=== PATIENT | female | born 1975 | race Caucasian/White ===

== ENCOUNTER 2017-05-05 16:27 | Outpatient (CLI) | payer MEDICAID ==
[~2017-05-05] VITALS: Ht 157.5 cm; Wt 69.5 kg
[2017-05-05 17:21] VITALS: BP 118/78
[2017-05-05 17:29] LABS: MICROSCOPIC INDICATED
[2017-05-05 18:32] LABS: AMPHETAMINE SCREEN, URINE Positive (Negative); BARBITURATE SCREEN, URINE Negative (Negative); BENZODIAZEPINE SCREEN, URINE Negative (Negative); CANNABINOID SCREEN, URINE Negative (Negative); COCAINE SCREEN, URINE Negative (Negative); METHADONE SCREEN, URINE Negative (Negative); OPIATE SCREEN, URINE Negative (Negative)
== END 2017-05-05 18:42 | disposition home or self-care (01) ==
LOC: LDOP 16:27
PROVIDERS: ATTEND Student in an Organized Health Care Education/Training Program
DX: O26.892 Other specified pregnancy related conditions, second trimester (principal); R42 Dizziness and giddiness; R07.81 Pleurodynia; Z3A.27 27 weeks gestation of pregnancy
CPT/HCPCS: 59025; 80307; 81001; 87086; 99201; G0463; G0479

== ENCOUNTER 2017-06-14 02:47 | Inpatient (IN) | payer MEDICAID ==
[~2017-06-14] VITALS: Ht 157.5 cm; Wt 70.4 kg
[2017-06-14] MEDS: LACTATED RINGERS 1,000 ML IV SCH ×2 (03:40→04:23)
[2017-06-14] MEDS ORDERED: MISOPROSTOL 200 MCG TABLET ONE (03:59)
[2017-06-14] MEDS ORDERED: BETAMETHASONE 6 MG/ML, 5ML IM ONE (03:59)
[2017-06-14] MEDS ORDERED: LIDOCAINE 1%, 20ML ONE (03:59)
[2017-06-14] MEDS ORDERED: NEWBORN KIT ONE (03:59)
[2017-06-14] MEDS ORDERED: OXYTOCIN 30U/ 0.9% NaCL 500ML 0 ML ONE (03:59)
[2017-06-14] MEDS ORDERED: CEFTRIAXONE 250 MG IM ONE (04:00)
[2017-06-14] MEDS ORDERED: AZITHROMYCIN 500 MG TABLET PO ONE (04:00)
[2017-06-14] MEDS ORDERED: OXYTOCIN 30U/ 0.9% NaCL 500ML 500 ML IV ONE (04:10)
[2017-06-14] MEDS ORDERED: ONDANSETRON 2MG/ML, 2ML IVPush PRN (04:30)
[2017-06-14] MEDS ORDERED: SODIUM CITRATE/CITRIC ACID 30 ML UDC PO PRN (04:30)
[2017-06-14] MEDS ORDERED: CALCIUM CARBONATE 500 MG TAB.CHEW PO PRN ×2 (04:30→05:00)
[2017-06-14] MEDS ORDERED: FENTANYL PF 100 MCG/2ML IV PRN (04:30)
[2017-06-14] MEDS ORDERED: METOCLOPRAMIDE 5 MG/ML, 2ML IVPush PRN (04:30)
[2017-06-14] MEDS ORDERED: FENTANYL PF 100 MCG/2ML IVPush PRN (04:30)
[2017-06-14] MEDS ORDERED: PENICILLIN GK 5,000,000 UNITS in DEXTROSE 5% 100 ML IVPB ONE (04:30)
[2017-06-14 04:37] LABS: MEAN CORPUSCULAR HEMOGLOBIN 23.7 pg (27.0-34.8); MEAN CORPUSCULAR HGB CONC 31.4 g/dL (32.4-35.8); MEAN CORPUSCULAR VOLUME 75.4 fL (80-100); MEAN PLATELET VOLUME 10.9 fL (7.4-10.4); PLATELET COUNT 238 x10^3/uL (130-400); RED BLOOD COUNT 3.94 x10^6/uL (3.82-5.3); RED CELL DISTRIBUTION WIDTH 19.6 % (9.6-15.2)
[2017-06-14] MEDS: OXYTOCIN 30U/ 0.9% NaCL 500ML 500 ML IV SCH ×2 (04:41→14:41)
[2017-06-14] MEDS ORDERED: IBUPROFEN 600 MG TABLET ONE (04:54)
[2017-06-14] MEDS ORDERED: OXYcodone/APAP 5/325MG TABLET ONE (04:55)
[2017-06-14] MEDS ORDERED: OXYTOCIN 30U/ 0.9% NaCL 500ML 500 ML IV SCH (04:58)
[2017-06-14] MEDS ORDERED: MAGNESIUM HYDROXIDE 8%, 30ML UDC PO PRN (05:00)
[2017-06-14] MEDS ORDERED: ONDANSETRON 2MG/ML, 2ML IV PRN (05:00)
[2017-06-14] MEDS ORDERED: OXYcodone/APAP 5/325MG TABLET PO PRN ×3 (05:00)
[2017-06-14] MEDS ORDERED: OXYcodone IR 5MG TABLET PO PRN (05:00)
[2017-06-14] MEDS ORDERED: HYDROcodone/APAP 5/325 TABLET PO PRN ×2 (05:00)
[2017-06-14] MEDS ORDERED: MEASLES,MUMPS&RUBELLA VACC/PF 0.5 ML SQ PRN (05:00)
[2017-06-14] MEDS ORDERED: IBUPROFEN 800 MG TABLET PO PRN (05:00)
[2017-06-14] MEDS ORDERED: MISOPROSTOL 200 MCG TABLET PR PRN (05:00)
[2017-06-14] MEDS ORDERED: DIPH,PERTUSS(ACELL),TET VAC/PF NC IM-VACC PRN (05:00)
[2017-06-14] MEDS ORDERED: IBUPROFEN 600 MG TABLET PO PRN (05:00)
[2017-06-14] MEDS ORDERED: RHOGAM FROM BLOOD BANK 1 NOTE EA IM/IV ONE (05:00)
[2017-06-14] MEDS: IBUPROFEN 600 MG TABLET PO PRN ×2 (05:01→12:24)
[2017-06-14] MEDS ORDERED: OXYTOCIN 30U/ 0.9% NaCL 500ML 500 ML ONE (05:14)
[2017-06-14 07:30] VITALS: BP 124/83
[2017-06-14] MEDS ORDERED: PENICILLIN GK 2,500,000 UNITS in DEXTROSE 5% 100 ML IV SCH (08:30)
[2017-06-14] MEDS ORDERED: PRENATAL VIT/IRON/FA 1 EACH TABLET PO SCH (09:00)
[2017-06-14] MEDS: DOCUSATE 100 MG CAPSULE PO PRN (12:24)
[2017-06-14] MEDS: PRENATAL VIT/IRON/FA 1 EACH TABLET PO SCH (12:24)
[2017-06-14 13:22] LABS: MEAN CORPUSCULAR HEMOGLOBIN 24.2 pg (27.0-34.8); MEAN CORPUSCULAR HGB CONC 31.8 g/dL (32.4-35.8); MEAN CORPUSCULAR VOLUME 76.3 fL (80-100); MEAN PLATELET VOLUME 10.7 fL (7.4-10.4); PLATELET COUNT 238 x10^3/uL (130-400); RED CELL DISTRIBUTION WIDTH 19.7 % (9.6-15.2)
[2017-06-14 13:39] LABS: MD YES
[2017-06-14 13:43] LABS: BAND#(MANUAL) 0.56 x10^3/uL; BANDS%(MANUAL) 2 % (0-7); LYMPH#(MANUAL) 0.85 x10^3/uL (1-3.4); LYMPHS% (MANUAL) 3 % (22-44); SEG#(MANUAL) 26.79 x10^3/uL (1.8-6.8); SEGS% (MANUAL) 95 % (42-75)
[2017-06-14 13:44] LABS: <PLATELET ESTIMATE> ADEQUATE; ANISOCYTOSIS 1+; HYPOCHROMIA 1+; LARGE PLATELETS 1+; MICROCYTOSIS 1+; POLYCHROMASIA 1+
[2017-06-14 13:45] LABS: TOXIC GRAN 1+
[2017-06-14 15:54] LABS: AMPHETAMINE SCREEN, URINE Positive (Negative); BARBITURATE SCREEN, URINE Negative (Negative); BENZODIAZEPINE SCREEN, URINE Negative (Negative); CANNABINOID SCREEN, URINE Negative (Negative); COCAINE SCREEN, URINE Negative (Negative); METHADONE SCREEN, URINE Negative (Negative); OPIATE SCREEN, URINE Negative (Negative)
[2017-06-14 16:30] VITALS: BP 117/73
[2017-06-14 21:00] VITALS: BP 109/71
[2017-06-15] VITALS: BP 111/72
[2017-06-15] MEDS: OXYTOCIN 30U/ 0.9% NaCL 500ML 500 ML IV SCH (00:41)
[2017-06-15 07:00] VITALS: BP 127/87
[2017-06-15] MEDS: DOCUSATE 100 MG CAPSULE PO PRN (08:27)
[2017-06-15] MEDS: PRENATAL VIT/IRON/FA 1 EACH TABLET PO SCH (08:27)
[2017-06-15] MEDS ORDERED: IBUP-1223 PO (08:55)
[2017-06-15] MEDS ORDERED: FERR325T23 PO (08:57)
== END 2017-06-15 12:31 | disposition home or self-care (01) | DRG 774 ==
LOC: LDOP 02:47 → OBSVTOIN 03:48 → LDIP 03:48 → 2NW 07:29
PROVIDERS: ADMIT Student in an Organized Health Care Education/Training Program; ATTEND Student in an Organized Health Care Education/Training Program
PROC: 10E0XZZ Delivery of Products of Conception, External Approach (ICD-10-PCS; principal; 2017-06-14)
DX: O60.14X0 Preterm labor third trimester with preterm delivery third trimester, not applicable or unspecified (principal); O98.22 Gonorrhea complicating childbirth; O99.324 Drug use complicating childbirth; O14.94 Unspecified pre-eclampsia, complicating childbirth; F15.90 Other stimulant use, unspecified, uncomplicated; Z37.0 Single live birth; Z3A.33 33 weeks gestation of pregnancy; Z88.2 Allergy status to sulfonamides
CPT/HCPCS: 36415; 80307; 82803; 85025; 85027; 86592; 86703; 86762; 86850; 86900; 87340; 87899; 88305; J0696; J2540; G0435; J2590; J7120

== ENCOUNTER 2017-09-03 13:04 | Emergency (ER) | payer MEDICAID ==
[~2017-09-03] VITALS: Ht 160 cm; Wt 61.9 kg
[~2017-09-03 13:04] MED LIST: FERR325T23 PO; IBUP-1223 PO
[2017-09-03] MEDS ORDERED: SODIUM CHLORIDE FLUSH 10ML SYR IVF ONE (15:30)
[2017-09-03 15:35] LABS: BASOPHILS # (AUTO) 0.09 x10^3/uL (0-0.1); BASOPHILS % (AUTO) 1 % (0-1); EOSINOPHILS # (AUTO) 0.68 x10^3/uL (0-0.4); EOSINOPHILS % (AUTO) 9 % (1-7); LYMPHOCYTES % (AUTO) 21 % (22-44); MD NO; MEAN CORPUSCULAR HEMOGLOBIN 24.2 pg (27.0-34.8); MEAN CORPUSCULAR HGB CONC 31.7 g/dL (32.4-35.8); MEAN CORPUSCULAR VOLUME 76.3 fL (80-100); MEAN PLATELET VOLUME 10.1 fL (7.4-10.4); MONOCYTES # (AUTO) 0.86 x10^3/uL (0.2-0.8); MONOCYTES % (AUTO) 12 % (2-9); NEUTROPHILS # (AUTO) 4.18 x10^3/uL (1.8-6.8); NEUTROPHILS % (AUTO) 57 % (42-75); PLATELET COUNT 263 x10^3/uL (130-400); RED BLOOD COUNT 4.65 x10^6/uL (3.82-5.3); RED CELL DISTRIBUTION WIDTH 20.2 % (9.6-15.2)
[2017-09-03 15:43] LABS: ALANINE AMINOTRANSFERASE 41 U/L (12-78); ALBUMIN 3.2 g/dL (3.4-5.0); ANION GAP 7 mmol/L (5-15); CALCIUM 8.2 mg/dL (8.5-10.1); CHLORIDE 110 mmol/L (98-107); CREATININE 0.82 mg/dL (0.55-1.02)
[2017-09-03 15:47] LABS: ALKALINE PHOSPHATASE 141 U/L (45-117); BILIRUBIN,TOTAL 0.2 mg/dL (0.2-1.0); TOTAL PROTEIN 7.2 g/dL (6.4-8.2)
[2017-09-03 16:00] LABS: MICROSCOPIC AUTO
[2017-09-03 16:05] LABS: CULTURE INDICATED? YES
[2017-09-03 17:55] VITALS: BP 130/78
== END 2017-09-03 17:57 | disposition home or self-care (01) ==
LOC: ED 17:30
DX: N83.291 Other ovarian cyst, right side (principal)
CPT/HCPCS: 36415; 76830; 76857; 80053; 81001; 84703; 85025; 87086; 99285

== ENCOUNTER 2020-12-13 12:55 | Emergency (ER) | payer SELFPAY ==
[~2020-12-13] VITALS: Ht 160 cm; Wt 70.2 kg
[2020-12-13 13:29] VITALS: BP 110/74
--- NOTE | 2020-12-13 13:40 | NUR ---
ANIMAL WARDEN: URINE SAMPLE COLLECTED AND SENT TO LAB
[2020-12-13 14:17] LABS: MICROSCOPIC NOT IND
[2020-12-13 14:35] LABS: ALANINE AMINOTRANSFERASE 15 U/L (12-78); ALBUMIN 2.9 g/dL (3.4-5.0); ANION GAP 5 mmol/L (5-15); CALCIUM 9.1 mg/dL (8.5-10.1); CHLORIDE 105 mmol/L (98-107); CREATININE 0.61 mg/dL (0.55-1.02)
[2020-12-13 14:39] LABS: ALKALINE PHOSPHATASE 132 U/L (45-117); BILIRUBIN,TOTAL 0.3 mg/dL (0.2-1.0); TOTAL PROTEIN 7.6 g/dL (6.4-8.2)
[2020-12-13 14:40] LABS: BASOPHILS % (AUTO) 1 % (0-1); EOSINOPHILS % (AUTO) 4 % (1-7); LYMPHOCYTES % (AUTO) 14 % (22-44); MEAN CORPUSCULAR HEMOGLOBIN 22.5 pg (27.0-34.8); MEAN PLATELET VOLUME 10.2 fL (7.4-10.4); MONOCYTES % (AUTO) 8 % (2-9); NEUTROPHILS % (AUTO) 74 % (42-75); PLATELET COUNT 282 x10^3/uL (130-400); RED BLOOD COUNT 4.98 x10^6/uL (3.82-5.3); RED CELL DISTRIBUTION WIDTH 18.2 % (9.6-15.2)
--- NOTE | 2020-12-13 15:47 | NUR ---
TRIAGE TECH: NIL FOR SECOND SET OF VITALS
--- NOTE | 2020-12-13 16:58 | NUR ---
TRIAGE TECH: NIL X 3
== END 2020-12-13 17:19 | disposition left against medical advice (07) ==
LOC: ED 13:25
DX: R10.12 Left upper quadrant pain (principal); R11.2 Nausea with vomiting, unspecified
CPT/HCPCS: 36415; 80053; 81003; 84703; 85025; 99283